=== PATIENT | female | born 1965 | race Two or more races ===

== ENCOUNTER 2022-07-16 14:02 | Emergency (ER) | payer SELFPAY ==
[2022-07-16 15:28] LABS: ESTIMATED GFR 105 mL/min (>60)
== END 2022-07-16 16:05 | disposition home or self-care (01) ==
LOC: FB.ED 14:02
DX: E11.65 Type 2 diabetes mellitus with hyperglycemia (principal); F17.210 Nicotine dependence, cigarettes, uncomplicated; Z79.899 Other long term (current) drug therapy
CPT/HCPCS: 36415; 80053; 81001; 82947; 84484; 85025; 99284